=== PATIENT | female | born 1950 | race Caucasian/White ===

== ENCOUNTER 2022-08-08 10:37 | Emergency (ER) | payer MEDICARE, OTHER ==
[~2022-08-08 10:37] MED LIST: FLUTICASONE-SA1 EAC4 INH; HCTZ25 MG PO
[2022-08-08 12:15] LABS: BASOPHIL 1.2 % (0-2); EOSINOPHIL 3.5 % (0-7); HCT 41.9 % (37.0-47.0); LYMPHOCYTE 19.4 % (15-48); MCH 29.9 pg (25.0-31.0); MCHC 33.4 g/dL (32.0-36.0); MCV 89.5 fL (78.0-100.0); MONOCYTE 7.9 % (0-12); MPV 8.7 fL (6.0-9.5); NEUTROPHIL 67.8 % (41-80); NRBC 0; PLT 348 K/uL (150-400); RBC 4.68 M/uL (4.20-5.40); RDW 13.9 % (11.5-14.0); WBC 9.7 K/uL (4.0-10.5)
[2022-08-08 12:43] LABS: ALBUMIN 3.9 g/dL (3.4-5.0); BILIRUBIN - TOTAL 0.7 mg/dL (0.2-1.0); BUN/CREAT RATIO (CALC) 15.2 RATIO; CREATININE 0.79 mg/dL (0.51-0.95); GLOBULIN (CALCULATION) 3.6 g/dL; POTASSIUM 3.2 mmol/L (3.5-5.1); TOTAL PROTEIN 7.5 g/dL (6.4-8.2)
== END 2022-08-08 13:49 | disposition home or self-care (01) ==
LOC: FER 10:37
PROVIDERS: Emergency Medicine
DX: M25.512 Pain in left shoulder (principal); M54.2 Cervicalgia; I10 Essential (primary) hypertension; J44.9 Chronic obstructive pulmonary disease, unspecified; Z98.890 Other specified postprocedural states; Z88.5 Allergy status to narcotic agent; Z91.041 Radiographic dye allergy status; Z79.899 Other long term (current) drug therapy
CPT/HCPCS: 36415; 71045; 80053; 84484; 85025; 93005